=== PATIENT | male | born 1965 | race Caucasian/White ===

== ENCOUNTER 2022-06-16 09:05 | Outpatient (CLI) | payer BC, SELFPAY ==
[2022-06-16 11:45] LABS: Albumin* 4.9 g/dL (3.3-5.0); Chloride* 102 mmol/L (96-114)
[2022-06-16 11:46] LABS: Potassium* 4.6 mmol/L (3.6-5.1); Sodium* 141 mmol/L (135-149)
[2022-06-16 11:48] LABS: Bilirubin Total* 0.7 mg/dL (0.1-1.5); Carbon Dioxide* 29 mmol/L (20-32); Cholesterol* 274 mg/dL (90-199); Creatinine* 0.7 mg/dL (0.5-1.5); Estimated Glomerular Filt Rate 110 ml/min
[2022-06-16 11:49] LABS: Alanine Aminotransferase* 26 U/L (4-50); Alkaline Phosphatase* 83 U/L (40-150); Aspartate Amino Transferase* 22 U/L (12-35); Blood Urea Nitrogen* 15 mg/dL (7-30); Calcium* 9.3 mg/dL (8.4-10.6); Glucose* 110 mg/dL (60-115); HDL Cholesterol* 58 mg/dL (>=40); LDL Cholesterol Calculated 187 mg/dL (<100); Total Protein* 7.8 g/dL (6.0-8.3); Triglycerides* 143 mg/dL (40-149)
[2022-06-16 12:19] LABS: PSA Screen* 0.86 ng/mL (0.10-4.00)
== END 2022-06-16 09:06 | disposition home or self-care (01) ==
PROVIDERS: PCP Family Medicine; Visit Provider Family Medicine
DX: Z00.00 Encounter for general adult medical examination without abnormal findings (principal); E78.5 Hyperlipidemia, unspecified; I10 Essential (primary) hypertension; Z12.5 Encounter for screening for malignant neoplasm of prostate
CPT/HCPCS: 80053; 80061; 84153

== ENCOUNTER 2022-09-18 07:39 | Outpatient (CLI) | payer BC, SELFPAY | END 2022-09-18 07:40 | disposition home or self-care (01) | LOC: NFLDREF 09-22 09:42 | PROVIDERS: PCP Family Medicine; Referring Provider Family Medicine; Visit Provider Family Medicine | DX: E78.5 Hyperlipidemia, unspecified (principal) | CPT/HCPCS: 80061; 84450; 84460 ==

== ENCOUNTER 2023-02-14 07:56 | Outpatient (CLI) | payer BC, SELFPAY | END 2023-02-14 07:57 | disposition home or self-care (01) | LOC: NFLDREF 02-15 07:14 | PROVIDERS: PCP Family Medicine; Referring Provider Family Medicine; Visit Provider Family Medicine | DX: E78.5 Hyperlipidemia, unspecified (principal); M17.0 Bilateral primary osteoarthritis of knee | CPT/HCPCS: 80048; 80061; 84450; 84460 ==